=== PATIENT | female | born 1980 | race American Indian/Alaskan Native ===

== ENCOUNTER 2017-07-06 14:51 | Emergency (ER) | payer OTHER ==
[2017-07-06 15:11] VITALS: BP 120/75
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
--- NOTE | 2017-07-06 19:26 | XRay Report ---
FINAL REPORT EXAM: XR RIBS UNI W PA CHEST 3+V LT HISTORY: fall at hotel l rib and side pain TECHNIQUE: Frontal chest x-ray. 4 views of left ribs. PRIORS: None. FINDINGS: Cardiac and mediastinal silhouette within normal limits. Lungs are grossly clear. No apparent pneumothorax. No obvious or displaced left rib fracture. IMPRESSION: 1. No acute findings.
== END 2017-07-06 19:42 | disposition home or self-care (01) ==
LOC: ED 14:51
DX: S20.212A Contusion of left front wall of thorax, initial encounter (principal); W01.0XXA Fall on same level from slipping, tripping and stumbling without subsequent striking against object, initial encounter; Y93.9 Activity, unspecified; Y92.89 Other specified places as the place of occurrence of the external cause; Y99.8 Other external cause status
CPT/HCPCS: 99283